=== PATIENT | male | born 1975 | race Caucasian/White ===

== ENCOUNTER 2023-01-17 08:00 | Outpatient (RCR) | payer OTHER, SELFPAY ==
--- NOTE | 2022-12-16 11:12 | PTOPEVAL1 ---
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 thinks heard a pop at that time. But recently it got worse about 3 weeks ago. Was busy that day twisting and shoveling for work . Bringing knee up to chest causes tingling down LLE more down to heel. Sometimes will feel prssue or squeezing in left testicle. Will be in thr gorin area, then down the back of the leg. Reported Pain Level Pain Score 4,4: Self Report Additional Pain Score Comments Things that make pain better: resting, laying flat on a hard surface Things that make it worse: shoveling and twisting Assessment PT Clinical Summary Pt presents with back pain after injury 1.5 years ago that worsened recently after a busy day at work. Evaluation shows LLE long compared to RLE, reduced core and hip strength, decreased hip flexibility, improved symptoms with repeated extension activity suggestive of discogenic issue. Pt will benefit from physical therapy to address deficits and educate on appropriate movement patterns especially in the work area as patient has a highly physical requirement for his position . Plan of Care Interventions Electrical Stimulation,Hot Pack/Cold Pack,Manual Therapy,Mechanical Traction,Neuro Re-education, Patient/Caregiver Educati,Therapeutic Activities, Therapeutic Exercise,Ultrasound Treatment Frequency and 1-2x weekly x 8 visits Duration These treatments will address the objective and functional deficits as defined above. The patient will be advanced safely and appropriately in order for the patient to progress towards his/her prior level of function. Additional exercises will be introduced and as well as a comprehensive home exercise program upon discharge, if needed, ?to ensure carryover of functional gains achieved in the clinic. This treatment plan has been reviewed and agreement upon by the patient.
--- NOTE | 2022-12-16 11:13 | OPREHPOC ---
Outpatient Therapy Plan of Care This is a Multidisciplinary Plan of Care that may contain components documented by all disciplines (PT, OT, and ST.) PT Problem 1 PT Problem #1 Knowledge Deficit PT Goal 1 Goal Pt will be independent in HEP Pt will verbalize understanding of diagnosis and prognosis Target Visit 8 PT Problem 2 PT Problem #2 Impaired Strength PT Goal 1 Goal Pt will demo strength of 5/5 in all tested planes BLE Target Visit 8 PT Goal 2 Goal Pt will demo lower abdominal strength 4/5 PT Problem 3 PT Problem #3 Pain PT Goal 1 Goal Pt will report greatest pain level at 5/10 or less Target Visit 8 PT Goal 2 Goal Pt will report resolution of pain Target Visit 16 PT Problem 4 PT Problem #4 Impaired Flexibility PT Goal 1 Goal Pt will demo improved piriformis and quad flexibility to reduce strain on low back
--- NOTE | 2023-01-17 08:53 | PTOPDC ---
Assessment and note entered by Lainey Cohen, PT Assessment Status Discharge Diagnosis low back pain unspec Subjective Information Pt has been able to perform high level activities at work related to bending, lifting, and twisting. Reports was conscious of form and bending from the hips, had no pain with activity or after activtiy. Hasn't had much pain recently. Feels 98% improved Reported Pain Level Pain Score 0,0: Self Report Assessment PT Clinical Summary Pt has attended therapy consistently, performed exercises as directed, has been consistent with use of one layer of heel lift, and reports applying education for lifting and work activities . Pt has met all goals, reports feeling 98% improved, states 0/10 in back and leg over multiple weeks. Thus patient is being discharged from therapy for returning to [facility].
== END 2023-01-17 11:11 | disposition home or self-care (01) ==
LOC: ANHHIPT 08:00
PROVIDERS: PCP Family Medicine; Visit Provider Family Medicine
DX: M54.50 Low back pain, unspecified (principal)
CPT/HCPCS: 97014; 97110; 97112; 97140; 97161; 97530; 97750; G0283